=== PATIENT | female | born 1995 | race Two or more races ===

== ENCOUNTER → 2018-11-07 | Outpatient (REF) | payer OTHER | LOC: M SFHCLERA 12:56 | PROVIDERS: ATTEND Nurse Practitioner Family | DX: J02.9 Acute pharyngitis, unspecified (principal) ==

== ENCOUNTER → 2019-04-16 | Outpatient (CLI) | payer OTHER ==
[2019-04-16 16:17] LABS: BASO % 0.1 % (0.0-1.0); EOS % 0.2 % (0.0-3.0); HEMATOCRIT 34.7 % (36.0-47.0); HEMOGLOBIN 10.6 g/dl (12.0-15.5); LYMPH # 1.1 10^3/uL (1.5-5.0); LYMPH % 13.2 % (24.0-44.0); MEAN CORPUSCULAR HEMOGLOBIN 20.7 pg (27.0-33.0); MEAN CORPUSCULAR HGB CONC 30.5 g/dl (32.0-36.5); MEAN CORPUSCULAR VOLUME 67.9 fl (80.0-96.0); MONO # 0.4 10^3/uL (0.0-0.8); MONO % 5.2 % (0.0-5.0); NEUTROPHILS # 6.6 10^3/uL (1.5-8.5); NEUTROPHILS % 81.1 % (36.0-66.0); PLATELET COUNT, AUTOMATED 208 10^3/uL (150-450); RED BLOOD COUNT 5.11 10^6/uL (4.00-5.40); WHITE BLOOD COUNT 8.2 10^3/uL (4.0-10.0)
[2019-04-16 16:34] LABS: HEMOGLOBIN A1c 5.2 %
[2019-04-16 17:02] LABS: FREE THYROXINE INDEX 3.9 % (1.3-4.8); GLUCOSE CHALLENGE TEST 1 HOUR 178 MG/DL (LESS THAN 140); T UPTAKE 29 % (30-39); THYROXINE (T4) 13.5 UG/DL (4.5-12.0)
[2019-04-17 07:17] LABS: CHLAMYDIA DNA AMPLIFICATION NEGATIVE (NEGATIVE); GC DNA AMPLIFICATION NEGATIVE (NEGATIVE)
[2019-04-18 13:03] LABS: RUBELLA IgG QUALITATIVE IMMUNE (IMMUNE)
[2019-04-18 13:31] LABS: HEPATITIS C VIRUS ABY INDEX 0.1 INDEX (<0.8)
[2019-04-18 13:32] LABS: HIV 1&2 SCREEN CENTAUR NEGATIVE (NEGATIVE)
== END ==
LOC: M LAB 13:53
PROVIDERS: ATTEND Advanced Practice Midwife
DX: Z34.81 Encounter for supervision of other normal pregnancy, first trimester (principal); Z3A.01 Less than 8 weeks gestation of pregnancy

== ENCOUNTER → 2019-04-27 | Outpatient (CLI) | payer OTHER | LOC: M LAB 08:03 | PROVIDERS: ATTEND Advanced Practice Midwife | DX: Z36.89 Encounter for other specified antenatal screening (principal) ==

== ENCOUNTER → 2019-06-12 | Outpatient (CLI) | payer OTHER ==
--- NOTE | 2019-06-13 05:15 | REP ---
Clinical: Anatomical evaluation. Comparison: None . Findings: Examination demonstrates a single live intrauterine in cephalic presentation. motion is identified by technologist. Placenta is noted anterior and grade I without evidence for placenta previa or abruption. Amniotic fluid volume is normal. Cervix measures 3.2 cm in length and appears closed. No evidence for nuchal cord. Gestational age by current measurements 18 weeks 4 days with SHANTA 11/09/2019 . FHR equals 161 beats per minute. BPD 4.1 cm 18 weeks 3 days HC 15.6 cm 18 weeks 4 days AC 13.1 cm 18 weeks 4 days FL 2.9 cm 18 weeks 6 days HL 2.9 cm 19 weeks 3 days HC/AC ratio 1.19 Estimated weight 254 grams ( 54th percentile). Anatomical assessment demonstrates normal structures including cranium, choroid plexus, cavum, cerebellum/posterior fossa, lungs, four-chamber heart/left ventricular outflow tract, diaphragm, stomach, cord insertion/three-vessel cord, kidneys/bladder, spine, and extremities. Limited evaluation of the facial features and right cardiac ventricular outflow tract. Impression: Single live intrauterine in cephalic presentation. Limited evaluation of the facial features and right cardiac ventricular outflow tract may warrant reevaluation and follow-up.
== END ==
LOC: M WHC 13:43
PROVIDERS: ATTEND Advanced Practice Midwife
DX: O24.13 Pre-existing type 2 diabetes mellitus, in the puerperium (principal); Z3A.18 18 weeks gestation of pregnancy

== ENCOUNTER → 2019-06-26 | Outpatient (CLI) | payer OTHER ==
--- NOTE | 2019-06-26 11:59 | REP ---
Clinical: Anatomical evaluation. Comparison: 06/12/2019 . Findings: Examination demonstrates a single live intrauterine in breech presentation. motion is identified by technologist. Placenta is noted anterior and grade zero without evidence for placenta previa or abruption. Amniotic fluid volume is normal. Cervix measures 3.6 cm in length and appears closed. No evidence for nuchal cord. Gestational age by LMP 20 weeks 4 days with SHANTA 11/09/2019 . Gestational age by current measurements 21 weeks 1 day with SHANTA 11/05/2019 . FHR equals 156 beats per minute. Estimated weight 414 grams ( 71st percentile). Anatomical assessment demonstrates normal structures including cranium, choroid plexus, cavum, cerebellum/posterior fossa, facial features, lungs, four-chamber heart/ventricular outflow tracts, diaphragm, stomach, cord insertion/three-vessel cord, kidneys/bladder, spine, and extremities. Impression: Single live intrauterine in breech presentation demonstrating appropriate interval growth. Anatomical assessment is complete and normal. Electronically Signed by Dorian Wynne MD 06/26/2019 11:50 A
== END ==
LOC: M RAD 10:30
PROVIDERS: ATTEND Advanced Practice Midwife
DX: Z36.3 Encounter for antenatal screening for malformations (principal); O24.419 Gestational diabetes mellitus in pregnancy, unspecified control; Z3A.20 20 weeks gestation of pregnancy

== ENCOUNTER → 2019-07-30 | Outpatient (CLI) | payer OTHER ==
[2019-07-30 15:22] LABS: HEMATOCRIT 30.2 % (36.0-47.0); HEMOGLOBIN 9.3 g/dl (12.0-15.5); MEAN CORPUSCULAR HGB CONC 30.8 g/dl (32.0-36.5); MEAN CORPUSCULAR VOLUME 68.3 fl (80.0-96.0); PLATELET COUNT, AUTOMATED 219 10^3/uL (150-450); RED BLOOD COUNT 4.42 10^6/uL (4.00-5.40); WHITE BLOOD COUNT 10.9 10^3/uL (4.0-10.0)
[2019-07-30 15:46] LABS: HEMOGLOBIN A1c 5.4 %
== END ==
LOC: M LAB 14:17
PROVIDERS: ATTEND Nurse Practitioner Women's Health
DX: O24.112 Pre-existing type 2 diabetes mellitus, in pregnancy, second trimester (principal); Z3A.24 24 weeks gestation of pregnancy

== ENCOUNTER → 2019-09-03 | Outpatient (CLI) | payer OTHER | LOC: M LAB 08:41 | PROVIDERS: ATTEND Advanced Practice Midwife | DX: O99.019 Anemia complicating pregnancy, unspecified trimester (principal); D64.9 Anemia, unspecified ==

== ENCOUNTER → 2019-09-14 | Outpatient (CLI) | payer OTHER ==
--- NOTE | 2019-09-15 07:34 | REP ---
OB ULTRASOUND: Real-time sonographic evaluation of gravid uterus performed. There is a single living intrauterine gestation. The estimated gestational age is 32 weeks 0 days, EDC 11/09/2019. Today's measurements indicate appropriate growth. BPD 83 mm = 33 weeks 1 day, 67th percentile HC 297 mm = 32 weeks 6 days, 63rd percentile AC 292 mm = 33 weeks 1 day, 68th percentile Femur length 63 mm = 32 weeks 4 days, 60th percentile HC/AC ratio 1.02, within normal range 0.95 - 1.14. Estimated weight 2098 grams, 64th percentile. Cervix is closed and measures 3.7 cm in length. heart rate 146 beats per minute. Amniotic fluid within normal limits. GERTRUDE 15.4, normal range 8.6 - 24.2. position vertex. Placenta anterior and grade 1 with no previa or abruption.
== END ==
LOC: M WHC 13:31
PROVIDERS: ATTEND Obstetrics & Gynecology
DX: O24.313 Unspecified pre-existing diabetes mellitus in pregnancy, third trimester (principal); Z3A.32 32 weeks gestation of pregnancy

== ENCOUNTER → 2019-10-05 | Outpatient (CLI) | payer OTHER ==
--- NOTE | 2019-10-06 10:48 | REP ---
OBSTETRIC SONOGRAPHY: HISTORY: Diabetes mellitus during third trimester. growth study and GERTRUDE. FINDINGS: Scanning demonstrates a single living intrauterine gestation in a cephalic lie. motion is identified and heart rate is recorded at 146 beats per minute. A posterior grade 1 placenta is seen without evidence of previa or abruption. Amniotic fluid is subjectively normal. Closed cervical length measured transabdominally is 3.2 cm. No extrauterine abnormality is observed. There has been appropriate interval growth. BIOMETRY CHART: BPD 8.7 cm = 34 weeks 6 days Head circumference 31.7 cm = 35 weeks 4 days Abdominal circumference 31.0 cm = 35 weeks 0 days Femur length 6.8 cm = 34 weeks 6 days Humeral length 6.0 cm = 34 weeks 6 days HC/AC ratio normal 1.02 Cephalic index normal 0.76 Estimated weight 2565 grams, 5 pounds 10 ounces, 49th percentile for 35 weeks 0 days. GERTRUDE normal 8.8 cm. IMPRESSION: Viable single intrauterine gestation at 34 weeks 5 days by today's composite criteria. Expected gestational age estimate based on prior sonography is 35 weeks 0 days. SHANTA by prior sonography November 09, 2019. There has been appropriate interval growth. GERTRUDE is normal at 8.8 cm.
== END ==
LOC: M WHC 13:05
PROVIDERS: ATTEND Advanced Practice Midwife
DX: O24.313 Unspecified pre-existing diabetes mellitus in pregnancy, third trimester (principal)

== ENCOUNTER → 2019-10-11 | Outpatient (REF) | payer OTHER | LOC: M SFHCWAGY 16:45 | PROVIDERS: ATTEND Specialist | DX: Z34.83 Encounter for supervision of other normal pregnancy, third trimester (principal) ==

== ENCOUNTER → 2019-10-26 | Outpatient (CLI) | payer OTHER ==
[~2019-10-26] MED LIST: FERR325T81 PO; PRENTAB9 PO
--- NOTE | 2019-10-26 16:27 | REP ---
REASON: Check growth and GERTRUDE. Multiple ultrasonographic images of the gravid uterus show a single living intrauterine gestation in the cephalic presentation with Doppler interrogation of the heart shows the heart rate of 161 beats per minute. The placenta is anterior and not low lying. The subjective amniotic fluid volume is within normal limits. The cervix measures 3 cm in length and is closed. The calculated amniotic fluid index is 12.5 with the expected range 7.3 to 23.9. BPD 9.3 cm = 38 weeks 0 days HC 33.5 cm = 38 weeks 2 days AC 34.5 cm = 38 weeks 3 days FL 7.2 cm = 37 weeks 0 days The estimated weight is 3372 grams which is at the 58th percentile for a 84-pnez-4-day gestational age. IMPRESSION: Single living intrauterine gestation as described above with an estimated gestational age of 37 weeks 3 days via composite criteria and an estimated date of delivery of 11/13/2019 by today's exam.
== END ==
LOC: M WHC 13:07
PROVIDERS: ATTEND Advanced Practice Midwife
DX: O24.313 Unspecified pre-existing diabetes mellitus in pregnancy, third trimester (principal); Z3A.38 38 weeks gestation of pregnancy

== ENCOUNTER 2019-11-02 17:07 | Inpatient (IN) | payer OTHER ==
[~2019-11-02] VITALS: Ht 165.1 cm; Wt 115.4 kg
[2019-11-02 17:33] VITALS: BP 120/78
[2019-11-02] MEDS ORDERED: FERR325T81 PO (17:38)
[2019-11-02] MEDS ORDERED: PRENTAB9 PO ×2 (17:38)
[2019-11-02] MEDS ORDERED: LACTATED RINGER'S 1000 ML IV STA (19:02)
[2019-11-02] MEDS ORDERED: miSOPROStol 50 MCG 1/2 TAB (S0191) PO SCH (19:15)
[2019-11-02 19:22] LABS: HEMATOCRIT 27.8 % (36.0-47.0); HEMOGLOBIN 8.3 g/dl (12.0-15.5); MEAN CORPUSCULAR HEMOGLOBIN 19.8 pg (27.0-33.0); MEAN CORPUSCULAR HGB CONC 29.9 g/dl (32.0-36.5); MEAN CORPUSCULAR VOLUME 66.3 fl (80.0-96.0); PLATELET COUNT, AUTOMATED 201 10^3/uL (150-450); RED BLOOD COUNT 4.19 10^6/uL (4.00-5.40); WHITE BLOOD COUNT 11.1 10^3/uL (4.0-10.0)
[2019-11-02 19:24] VITALS: BP 130/60
--- NOTE | 2019-11-02 19:44 | HPEPDOC ---
Obstetrical History & Physical General Date of Admission Nov 02, 2019 at 17:07 History of Present Illness Chief Complaint: Induction of labor Information Provided By: Patient Age: 24 : 2 Term: 1 Pre-term: 0 Abortions: 0 Livin Care Care: Good Care Dating Final EDC: Nov 09, 2019 Final EDC by: LMP EGA at Admission: 39 Antepartum Course Pre- weight (lbs.): 252 Admission Weight (lbs.): 255.4 Past Medical History Past Obstetrical History : Past Obstetrical History: Primgravida (2015) Type of Delivery: Spontaneous Vaginal Del. 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 Past Medical History Medical History Sickle cell carrier Surgical History: Gallbladder, Tonsilectomy Family History Significant Family History: Diabetes, Hypertension, Other (leukemia) Social History Marital Status: Family situation: Spouse/partner home Psychosocial History: No pertinent psych hx * Smoker: non-smoker Alcohol: Denies Drugs: denies Abuse Violence Screening Have you been hit/kicked/slapp: No Have you been sexually assault: No Imunizations Tdap status: current Allergies Coded Allergies: Sulfa (Sulfonamide Antibiotics) (Verified Adverse Reaction, Unknown, vomiting, 11/02/19) Medications Scheduled No.137/Iron/Folic Acd ( Vitamin Tablet) 1 Each Tablet, 1 TAB PO DAILY Miscellaneous Medications Ferrous Sulfate (Iron) 325 Mg Tablet, 65 MG PO Physical Examination Physical Examination GENERAL: Alert and oriented times three. BREAST: . ABDOMEN: Gravid and non-tender to touch. FETUS: Is vertex (VTX) by sterile vaginal examination (SVE), fetus is vertex (VTX) by Jimmie. HEART RATE: Regular rate and rhythm. LUNGS: Clear to auscultation (CTA). EXTREMITIES: No edema. No clonus. Deep tendon reflexes (DTRs) + 2. Vital Signs/I&O Vital Signs Date Time Temp Pulse Resp B/P (MAP) Pulse Ox O2 Delivery O2 Flow Rate FiO2 11/02/19 17:40 112 11/02/19 17:33 98.3 18 120/78 (92) Laboratory Data 24H LABS Laboratory Tests 2 11/02/19 17:13: Serology Scanned Report Hepatitis B Testing 11/02/19 18:08: 11/02/19 18:11: Bedside Glucose (Misc Panel) 80 CBC/BMP Pertinent Laboratoy Data Blood Type: A+ RBC Antibody Screen: Negative HIV: Negative Hepatitis B: Negative Hepatitis C: Negative Rapid Plasma Reagin: Nonreactive Rubella: Immune Chlamydia/Gonorrhea: Negative Group B Streptococcus: Negative Quad Screen Test: Declined Glucose Tolerance Test: 178 (99/201/135/79) Anatomy Ultrasound Ultrasound Date: Jun 12, 2019 Placenta Location: Anterior Normal Anatomy: Yes Placenta Previa: No Estimated Weight (grams): 254 (54%) Other Ultrasounds 03/22/2019 dating 6w2d 06/26/2019 Remainder anatomy WNL. EFW 414gm, 71% 09/14/2019 Growth EFW 2098gm 64% 10/05/2019 Cephalic. EFW 2565gm 5#10, 49% Steroid Therapy Steroid Therapy: No Vaginal Examination Dilation: 1cm Effacement: 50% Station: -3 Cervical Consistency: Medium Cervical Position: Posterior Presentation: Cephalic presentation Assessment Heart Rate (FHR): 150 Variability: Moderate Decelerations: None Heart Patterns: Tachycardia (upon arrival, resolved with IV fluids) Tocometer Contractions: No Assessment/Plan Assessment Kelsey is a 24-year-old (G)2 para (P)1-0-0-1 at 39+0 weeks by 6-week ultrasound. Presents to Labor and Delivery (L&D) for induction of labor due to pregestational diabetes, diet controlled. She reports good movement. Denies LOF, bleeding, regular UC. 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 Diet: Regular. Group B Streptococcus (GBS) negative. Labs and intravenous (IV) per unit protocol. Counseled on misoprostol, Pitocin and induction of labor (IOL). Lactated Ringers (LR): Bolus 500 mL, then saline lock. Plans epidural for labor coping Anticipate normal spontaneous delivery (). C-S as appropriate. Martha Lorenzo CNM Nov 02, 2019 19:24
[2019-11-02] MEDS ORDERED: hydrOXYzine 50 MG TAB PO SCH (21:00)
[2019-11-02 21:02] VITALS: BP 131/60
[2019-11-02 22:05] VITALS: BP 128/85
[2019-11-02 23:35] VITALS: BP 131/84
[2019-11-03] VITALS (39 sets, daily range): BP systolic 82–143; BP diastolic 43–98
[2019-11-03] MEDS ORDERED: LR 1,000 ML IV ONE (00:30)
[2019-11-03] MEDS ORDERED: LR 1,000 ML IV SCH (01:51)
--- NOTE | 2019-11-03 01:51 | IPNPDOC ---
Text Note Date of Service The patient was seen on 11/03/19. NOTE Progress Pt reports feeling like she "broke her water" around 2319 with increased discomfort. Breathing with UC. Spec exam moderate clear/white cervical mucous. Neg nitrazine, neg fern. SVE /-2 UC 3-4 minutes x 45-60 seconds. FH Cat I Cooks catheter placed, inflated with 60/40ml NS Start pitocin. VS,Fishbone, I+O VS, Fishbone, I+O Laboratory Tests 11/02/19 18:08 Vital Signs Date Time Temp Pulse Resp B/P (MAP) Pulse Ox O2 Delivery O2 Flow Rate FiO2 11/02/19 22:05 97.9 106 16 128/85 (99) I&O- Last 24 Hours up to 6 AM 11/03/19 05:59 Intake Total 700 ml Balance 700 ml Martha Lorenzo CNM Nov 03, 2019 01:51
[2019-11-03] MEDS ORDERED: PROMETHAZINE INJ 25 MG/ML VIAL (J2550) IV ONE (02:00)
[2019-11-03] MEDS ORDERED: OXYTOCIN DRIP 30 UNITS in IV 1 EA IV SCH ×3 (02:00→11:30)
[2019-11-03] MEDS ORDERED: BUTORPHANOL 2 MG/ML INJ (J0595) IV ONE (02:00)
[2019-11-03] MEDS ORDERED: FENTANYL 2MCG/ML ROPIVACAINE 0.2% IN 0.9% NACL 100ML IVBAG As Ordered ONE (02:30)
[2019-11-03] MEDS ORDERED: REFRIGERATOR IV KEYS XX PRN (04:13)
[2019-11-03] MEDS ORDERED: FENTANYL/ROPIVACAINE/NACL BAG 100 ML EPIDURAL SCH (04:13)
[2019-11-03] MEDS ORDERED: NALOXONE INJ 0.4MG/1ML VIAL (J2310 PER 1MG) IV PRN (04:13)
[2019-11-03] MEDS ORDERED: diphenhydrAMINE 50MG/ML VIAL (J1200) IV PRN (04:13)
[2019-11-03] MEDS ORDERED: LACTATED RINGER'S 1000 ML IV PRN (04:13)
[2019-11-03] MEDS ORDERED: ePHEDrine SULFATE 25 MG/5 ML(5MG/ML) SYRINGE IV PRN (04:13)
[2019-11-03] MEDS ORDERED: EPIDURAL COMMENT XX SCH (04:13)
[2019-11-03] MEDS ORDERED: ONDANSETRON 4MG/2ML VIAL IV PRN (04:13)
[2019-11-03] MEDS ORDERED: EPIDURAL/PCA KEYS XX PRN (04:13)
[2019-11-03] MEDS ORDERED: DOCUSATE SODIUM 100 MG CAP PO PRN (11:00)
[2019-11-03] MEDS ORDERED: MEASLES,MUMPS,RUBELLA VACCINE INJ (MMR-II) (90707) SC SCH (11:00)
[2019-11-03] MEDS ORDERED: ANUSOL HC CREAM 30GM TOP PRN (11:00)
[2019-11-03] MEDS ORDERED: MOM 30ML SUSPENSION UDC PO PRN (11:00)
[2019-11-03] MEDS ORDERED: METHYLERGONOVINE MALEATE 0.2 MG TAB PO PRN (11:00)
[2019-11-03] MEDS ORDERED: IBUPROFEN 800 MG TAB PO PRN (11:00)
[2019-11-03] MEDS ORDERED: ACETAMINOPHEN TAB 650MG DOSE (2X325MG) PO PRN (11:00)
[2019-11-03] MEDS ORDERED: ACETAMINOPHEN 500 MG TAB PO PRN (11:00)
[2019-11-03] MEDS ORDERED: IBUPROFEN 600MG TAB PO PRN (11:00)
[2019-11-03] MEDS ORDERED: DIBUCAINE 1% OINTMENT 30GM TOP PRN (11:00)
[2019-11-03] MEDS ORDERED: RHOGAM 300 MCG (1500 IU) INJ (J2790) IM SCH (11:00)
--- NOTE | 2019-11-03 12:05 | DNPDOC ---
[facility] Delivery Note Delivery Note DATE OF DELIVERY: 11/03/2019 TIME OF : 0957 GENDER: Female. APGARS:, 9 and 9. WEIGHT:, 7 grams or, 9 pounds 3420 ounces. LACERATIONS: Frst-degree midline laceration ANESTHESIA: Epidural. ESTIMATED BLOOD LOSS: 300ml COUNTS: 5 laparotomy sponges accounted for prior to after delivery. One sharps removed delivery field. DELIVERY NOTE: 1 11/03/2019 at 0957, Mrs. Aguirre is a 24-year-old 2 now para 2, had a spontaneous vaginal delivery of viable female , Apgars, 9 and 9. Weight was 3420 g, 7 lbs. 9 oz. Head was delivered occiput anterior (OA), followed by delivery of the shoulders and corpus. Infant was handed to mom with a good cry. Cord was clamped times two and was cut by the father of baby under my direction. Placenta was then drained and delivered grossly intact. A premixed bag of 500 mL of normal saline with 30 units of Pitocin was then bolused along with uterine massage until the uterus was firm. On inspection,. There was a first-degree midline laceration which was repaired with 3-0 Vicryl. On reinspection, cervix, vagina, perineum was grossly intact and hemostatic. Mom and baby in recovery on stable condition. The couples decided to remain in daughter, ALYX Burks MD. Nov 03, 2019 12:05
[2019-11-04 06:00] VITALS: BP 134/94
--- NOTE | 2019-11-04 06:58 | IPNPDOC ---
Progress Note Date of Service: Nov 04, 2019 Day#: 1 Progress Note SUBJECT: Doing well without complaints. Ambulating, voiding and pain is well-c ontrolled. Reports minimal lochia. +breast feeding OBJECTIVE: VITAL SIGNS: Within normal limits, afebrile. Alert and oriented times three. Abdomen: Fundus firm at U-2. Soft, NTTP. Ext: neg calf tenderness. ASSESSMENT: day #1 status post normal spontaneous vaginal delivery. Recovering in stable condition. PLAN: 1. Continue routine care 2. Discharge plans for tomorrow VS, I&O, 24H, Fishbone Vital Signs/I&O Vital Signs Date Time Temp Pulse Resp B/P (MAP) Pulse Ox O2 Delivery O2 Flow Rate FiO2 11/04/19 06:00 98.1 85 20 134/94 (107) 11/03/19 18:00 100 Room Air I&O- Last 24 Hours up to 6 AM 11/04/19 06:00 Intake Total 1600 ml Output Total 1200 ml Balance 400 ml Laboratory Data 24H LABS Laboratory Tests 2 11/03/19 09:13: Bedside Glucose (Misc Panel) 73 ALYX CROOKS MD. Nov 04, 2019 06:58
[2019-11-04] MEDS: PRENATAL VITAMINS CHEWABLE TABLET PO SCH (08:12)
[2019-11-04 18:00] VITALS: BP 136/99
[2019-11-05 06:00] VITALS: BP 134/72
[2019-11-05 07:30] VITALS: BP 134/72
[2019-11-05] MEDS: PRENATAL VITAMINS CHEWABLE TABLET PO SCH (08:30)
== END 2019-11-05 11:10 | disposition home or self-care (01) | DRG 807 ==
LOC: M LDI 17:07 → M OBS 11-03 12:36
PROVIDERS: ADMIT Advanced Practice Midwife; ATTEND Obstetrics & Gynecology
PROC: 3E0P7GC Introduction of Other Therapeutic Substance into Female Reproductive, Via Natural or Artificial Opening (ICD-10-PCS; 2019-11-02)
PROC: 10E0XZZ Delivery of Products of Conception, External Approach (ICD-10-PCS; principal; 2019-11-03)
PROC: 0HQ9XZZ Repair Perineum Skin, External Approach (ICD-10-PCS; 2019-11-03)
DX: O24.12 Pre-existing type 2 diabetes mellitus, in childbirth (principal); Z37.0 Single live birth; Z3A.39 39 weeks gestation of pregnancy; E11.9 Type 2 diabetes mellitus without complications